=== PATIENT | male | born 1970 | race African-American/Black ===

== ENCOUNTER 2016-05-16 03:58 | Emergency (ER) | payer MEDICAID ==
[2016-05-16 04:08] VITALS: PULSE 78; TEMP 99.3
[2016-05-16] MEDS ORDERED: ALBUTEROL INH PREPACK MDI TAKEHOME ONE (04:13)
[2016-05-16] MEDS ORDERED: IBUPROFEN 200 MG TAB PO ONE (04:13)
[2016-05-16] MEDS ORDERED: AMOXICILLIN 250 MG PREPACK#4 BTL TAKEHOME ONE (04:14)
--- NOTE | 2016-05-16 04:19 | EDPHY ---
H & P Stated Complaint: cough/JIMÉNEZ since 05/12 Time Seen by Provider: 05/16/16 04:05 HPI/ROS: Chief complaint: Cough, headache HPI: 45-year-old male presenting with 4 days of dry nonproductive cough with a headache only when he coughs. Patient states he was seen at [facility] 4 days ago. Had a tetanus shot at that time. Since that time has had a dry nonproductive cough with headache. No nausea or vomiting. Some subjective chills at home. No chest pain or shortness of breath. Is having some tightness in his chest when he coughs. Has past medical history of fibromyalgia. Has not been taking any medications. ROS: 10 point Review of Systems is negative except as noted in the HPI. Past medical history: Fibromyalgia Social history: Does not smoke, does not drink alcohol, denies other drug use Physical exam: Gen: Awake, Alert, No Distress HEENT: Nose: no rhinorrhea Eyes: PERRLA, EOMI Mouth: Moist mucosa Neck: Supple, no JVD, no meningismus Chest: nontender, mild diffuse expiratory wheezes without focal rales or rhonchi Heart: S1, S2 normal, no murmur Abd: Soft, non-tender, no guarding Back: no CVA tenderness, no midline tenderness Ext: no edema, non-tender Skin: no rash Neuro: CN II-XII intact, Sensation grossly intact, Strength 5/5 in bilateral upper and lower extremities - Personal History Current Tetanus/Diphtheria Vaccine: Yes Tetanus Vaccine Date: 2016 - Medical/Surgical History Hx Asthma: No Hx Chronic Respiratory Disease: No Hx Diabetes: No Hx Cardiac Disease: No Hx Renal Disease: No Hx Cirrhosis: No Hx Alcoholism: No Hx HIV/AIDS: No Hx Splenectomy or Spleen Trauma: No Other PMH: PMHx: GERD, fibromyalgia - Social History Smoking Status: Never smoked Constitutional: Initial Vital Signs Temperature (C) 37.4 C 05/16/16 04:06 Heart Rate 78 05/16/16 04:06 Respiratory Rate 05/16/16 04:06 Blood Pressure 166/102 H 05/16/16 04:06 O2 Sat (%) 92 05/16/16 04:06 O2 Delivery Mode Room Air Allergies/Adverse Reactions: No Known Allergies Allergy (Unverified 05/16/16 04:06) Home Medications: Medication Instructions Recorded Amoxicillin 500 mg PO TID 7 Days 05/16/16 DULoxetine 05/16/16 Zantac 05/16/16 Departure - Departure Disposition: Home, Routine, Self-Care Clinical Impression: Bronchitis Condition: Good Instructions: Acute Bronchitis (ED), Wheezing (ED) Additional Instructions: You may use the inhaler 2 puffs every 4 hours as needed for cough or wheezing. Alternate acetaminophen and ibuprofen every 4 hours for fevers, chills, aches, or pains. Take her full course of antibiotics. Follow up with [facility] in 2-3 days if symptoms are not improving. Referrals: Patient,NotPresent [Primary Care Provider] - As per Instructions Prescriptions: Amoxicillin 500 mg PO TID 7 Days
[2016-05-16 05:16] VITALS: BP 158/96; RESP 16; O2SAT 95
== END 2016-05-16 05:16 | disposition home or self-care (01) ==
LOC: EDUNIT#
DX: J20.9 Acute bronchitis, unspecified (principal)

== ENCOUNTER 2018-01-01 14:57 | Emergency (ER) | payer MEDICAID ==
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
[2018-01-01] MEDS ORDERED: KETOROLAC 30 MG/1 ML SDV IVP ONE (16:53)
[2018-01-01 18:38] VITALS: BP 177/121
== END 2018-01-01 18:37 | disposition home or self-care (01) ==
LOC: EDUNIT#
DX: S70.11XA Contusion of right thigh, initial encounter (principal); S60.512A Abrasion of left hand, initial encounter; R40.2412 Glasgow coma scale score 13-15, at arrival to emergency department; V14.4XXA Pedal cycle driver injured in collision with heavy transport vehicle or bus in traffic accident, initial encounter; Y92.410 Unspecified street and highway as the place of occurrence of the external cause; Y93.55 Activity, bike riding; G90.513 Complex regional pain syndrome I of upper limb, bilateral; K21.9 Gastro-esophageal reflux disease without esophagitis; M79.7 Fibromyalgia
CPT/HCPCS: 96374; J1885